=== PATIENT | male | born 1975 | race Caucasian/White ===

== ENCOUNTER → 2016-06-02 | Outpatient (REF) | payer OTHER ==
[2016-06-02 12:07] LABS: ALT/SGPT 54 U/L (12-78); ANION GAP 8 MEQ/L (8-16); BLOOD UREA NITROGEN 22 MG/DL (7-18); CALCIUM LEVEL 9.7 MG/DL (8.5-10.1); CARBON DIOXIDE LEVEL 26 MEQ/L (21-32); CHLORIDE LEVEL 101 MEQ/L (98-107); CHOLESTEROL LEVEL 220 MG/DL (<200); CREATININE FOR GFR 1.05 MG/DL (0.70-1.30); GLOMERULAR FILTRATION RATE > 60.0 (>60); GLUCOSE, FASTING 101 MG/DL (70-105); POTASSIUM SERUM 4.8 MEQ/L (3.5-5.1); SODIUM LEVEL 135 MEQ/L (136-145); TRIGLYCERIDES LEVEL 151 MG/DL (<150)
== END ==
LOC: M SFHCCLAY 08:28
PROVIDERS: ATTEND Family Medicine
DX: Z12.5 Encounter for screening for malignant neoplasm of prostate (principal); I10 Essential (primary) hypertension

== ENCOUNTER 2016-08-18 21:44 | Observation (INO) | payer OTHER ==
[~2016-08-18] VITALS: Ht 188 cm; Wt 157.6 kg
[2016-08-18] MEDS ORDERED: LISI10TA2 PO (21:57)
[2016-08-18] MEDS ORDERED: IBUP-1114 PO (21:57)
[2016-08-18] MEDS ORDERED: MULT1TAB10 PO (21:57)
[2016-08-18] MEDS ORDERED: diltiaZEM **CD** 180 MG CAP PO ONE (22:15)
[2016-08-18 22:25] LABS: BASO % 0.5 % (0.0-1.0); EOS # 0.3 K/mm3 (0.0-0.50); EOS % 3.1 % (0.0-3.0); LARGE UNSTAINED CELL # 0.1 K/mm3 (0.0-0.4); LARGE UNSTAINED CELL % 1.3 % (0.0-4.0); LYMPH # 1.7 K/mm3 (1.5-4.5); LYMPH % 18.5 % (24.0-44.0); MEAN CORPUSCULAR HEMOGLOBIN 28.1 pg (27.0-33.0); MEAN CORPUSCULAR HGB CONC 33.8 g/dl (32.0-36.5); MONO # 0.4 K/mm3 (0.0-0.8); NEUTROPHILS # 6.3 K/mm3 (1.8-7.7); NEUTROPHILS % 72.6 % (36.0-66.0); PLATELET COUNT, AUTOMATED 253 k/mm3 (150-450); RED CELL DISTRIBUTION WIDTH 12.8 % (11.5-14.5); WHITE BLOOD COUNT 8.6 K/mm3 (4.0-10.0)
[2016-08-18] MEDS ORDERED: APIXABAN 5 MG TAB (ELIQUIS) PO ONE (22:30)
[2016-08-18 22:45] LABS: ANION GAP 11 MEQ/L (8-16); BLOOD UREA NITROGEN 18 MG/DL (7-18); CALCIUM LEVEL 8.8 MG/DL (8.5-10.1); CARBON DIOXIDE LEVEL 23 MEQ/L (21-32); CHLORIDE LEVEL 105 MEQ/L (98-107); CREATININE FOR GFR 0.96 MG/DL (0.70-1.30); GLOMERULAR FILTRATION RATE > 60.0 (>60); GLUCOSE, FASTING 132 MG/DL (70-105); POTASSIUM SERUM 3.4 MEQ/L (3.5-5.1); SODIUM LEVEL 139 MEQ/L (136-145); T UPTAKE 44 % (33-40); THYROXINE (T4) 4.9 UG/DL (4.5-12.0)
[2016-08-18 22:59] VITALS: BP 82/61
[2016-08-18] MEDS ORDERED: NS 1,000 ML IV ONE (23:30)
[2016-08-19] MEDS ORDERED: DIGOXIN INJ 0.5 MG/2 ML AMP (J1160) IV STA (01:05)
[2016-08-19] MEDS ORDERED: POTASSIUM CHLORIDE 10 MEQ SR TABLET PO ONE ×3 (03:45→16:15)
[2016-08-19 04:00] VITALS: BP 118/71
[2016-08-19] MEDS ORDERED: LISI20TA PO (04:01)
[2016-08-19] MEDS ORDERED: VITMTA PO (04:01)
[2016-08-19] MEDS ORDERED: IBUPOTC PO (04:01)
[2016-08-19] MEDS ORDERED: VITA10006 PO (04:02)
[2016-08-19 08:00] VITALS: BP 112/60
[2016-08-19] MEDS ORDERED: DIGOXIN 0.25 MG TAB PO SCH (09:00)
[2016-08-19] MEDS ORDERED: ENOXAPARIN 40 MG/0.4 ML SYRINGE (J1650) SC SCH (09:00)
--- NOTE | 2016-08-19 11:20 | ECGEPIP ---
Stationary ECG Study [facility] - ED Test Date: 2016-08-18 Pat Name: SLOAN DE PAZ Department: Room: [place] [address] Gender: M Road [employer]: bettina : 1975 Requested By: SHAQUILLE CARDOZA Order Number: [id number] Reading MD: Maciej Reyes Measurements Intervals [place] Rate: 136 P: MS: 0 QRS: 13 QRSD: 95 T: 34 QT: 297 QTc: 447 Interpretive Statements ATRIAL FIBRILLATION WITH RAPID VENTRICULAR RESPONSE NONSPECIFIC ST & T-WAVE ABNORMALITY NO PRIORS Electronically Signed On 08-19-2016 11:20:28 EDT by Maciej Reyes
[2016-08-19 12:00] VITALS: BP 93/60
[2016-08-19] MEDS ORDERED: ISOVUE-370 76% 100ML VIAL (Q9967) As Ordered ONE (12:36)
[2016-08-19] MEDS ORDERED: KCL 20MEQ in NS 1000ML 1,000 ML IV SCH (13:00)
--- NOTE | 2016-08-19 13:05 | IPN ---
DATE: 08/19/2016 Robin is seen in the emergency room (ER). He has been in an interim bed, admitted with atrial fibrillation with rapid ventricular response. This patient was seen without benefit of the history and physical, which is not available at the time of his evaluation. Early afternoon, on 08/19/2016, the patient tells me he had sudden onset of chest pain and shortness of breath at rest. It was on the left side of his chest. It did not radiate. Associated with palpitations. He has no past history of current arrhythmia, deep venous thrombosis (DVT), pulmonary embolism, or coronary artery disease. He does have hypertensive heart disease. He has a body type consistent with sleep apnea and does have occasional snoring but there is no witnessed apnea nor any excessive somnolence. PHYSICAL EXAMINATION: 93/60, pulse of 88, ranges from 100-120 during the observation. Respiratory rate 18. 93% oxygen saturation. 97.6 degrees. General appearance: He is alert, conversant, in no distress. HEENT: Unremarkable. Thyroid not palpable. Lungs: Decreased breath sounds but clear. Heart: Regular rate and rhythm. No murmur. Rate of 100-120. Abdomen: Soft, obese, nontender. No masses. Extremities: No clubbing, cyanosis, or edema. Normal strength in the upper arms and legs. No palpable venous cords or swollen calves. LABORATORIES: No labs done since yesterday. Potassium 3.4. IMPRESSION: Atrial fibrillation with rapid ventricular response. Etiology is unknown. There is no history and physical currently available. I looked at the EKG. It did show a atrial fibrillation. I looked at telemetry strips. They do show atrial fibrillation. Per nursing staff, received diltiazem last evening, an oral dose followed by an intravenous (IV) bolus and became hypotensive with systolic pressures down to the 80s. Currently it looks as though he has received 0.5 mg of Lanoxin IV and then an oral dose. He also looks to have received a single dose of Eliquis by mouth, but now has Lovenox ordered. The patient has not had a chest x-ray nor baseline coagulation studies done on admission. I discussed this with the nursing staff, ordered a stat chest x-ray and a stat PT/PTT off the blood collected upon admission (he has received Eliquis and Lovenox. We will be checking coagulations now would be less usual. I think we need to rule out pulmonary embolism. A stat CT angiogram has been ordered. I am hydrating him with IV fluid. He is hypotensive, probably residual blood pressure effect from the lisinopril/hydrochlorothiazide he takes at home coupled with the high dose diltiazem he received last evening. We will give him some saline. Echocardiogram is pending. He had a thyroid-stimulating hormone (TSH) in the rest of the studies done on thyroid profile, which are outdated and not beneficial. I have ordered a free T4, which is pending. Consultation will be placed with Dr. Adams. The case has been discussed. He will see the patient in consultation. I met with the patient and his and answered questions as best as I can at this time.
[2016-08-19 13:27] LABS: INR 1.04
[2016-08-19 14:00] VITALS: BP 131/65
[2016-08-19] MEDS ORDERED: FLECAINIDE 100 MG TABLET PO ONE (14:00)
[2016-08-19 15:45] VITALS: BP 117/66
--- NOTE | 2016-08-19 16:04 | REP ---
CHEST PA AND LATERAL: 08/19/2016. Clinical history: Atrial fibrillation. No prior studies. Findings of the lung thayer are well inflated. There is no pleural effusion, lateral pleural thickening, infiltrate, atelectasis or mass. Heart, mediastinal, hilar contours are normal. There is no gross cardiomegaly, vascular redistribution or pulmonary edema. No specific chamber enlargement. The aorta is normal for age. Airway is intact. The mediastinal or hilar mass. Lungs show no acute compression deformity or focal lesion. No free air. Impression: 1. No acute cardiopulmonary change. Signed by Gaurav Nunn MD 08/19/2016 08:21 P
--- NOTE | 2016-08-19 16:15 | REP ---
CT ANGIOGRAM OF THE CHEST: 08/19/2016. Clinical history: Dyspnea, chest pain. Technique. The patient received a bolus of 75 ml as Isovue 370 and scanning through the chest with coronal and sagittal thick slab MIP reformatting. The patient has a chest x-ray this same date. Findings: The lung thayer show some minor dependent atelectatic changes posteriorly without definite infiltrate, effusion or mass. No pulmonary nodule. See no pleural effusion, pleural thickening, calcified pleural plaque or pleural-based masses. No pneumothorax and mediastinum. The heart is not enlarged and no pericardial thickening or effusion. The aorta is without aneurysm or dissection. The main, right and left pulmonary arteries and the mediastinum are without a filling defect. There are no pathologic sized mediastinal or hilar nodes in the soft tissue windows of the chest. Tracheal airway intact. No supraclavicular mass or adenopathy. No hilar adenopathy. Within the lung thayer, the lobar, segmental and visible subsegmental arteries are without definite filling defect or vessel cutoff. No pathologic axillary or supraclavicular adenopathy. The bone windows show the sternum, manubrium, medial clavicles, humeral heads, glenohumeral joints, scapulae, ribs and the thoracic spine without compression fracture. There are marginal osteophytes throughout the upper to lower thoracic region without compression deformity of destructive lesion. In the upper abdomen that portion of liver and spleen included were without focal lesion. Gallbladder shows no calcified stone and the majority of its included volume. A tiny amount of it not included. Most of the pancreas is seen and what was visible was normal. No adrenal nodule or mass. The aorta is without aneurysm or dissection in its proximal course in the abdomen. Loops of small bowel colon included were unremarkable. Impression: 1. Some dependent atelectatic changes are noted. No definite infiltrate, effusion, nodule or mass. No pneumothorax. 2. No gross cardiomegaly. 3. I see no mediastinal or hilar adenopathy, aortic aneurysm, axillary or supraclavicular mass. 4. No CT evidence of pulmonary thromboembolism. Signed by Gaurav Nunn MD 08/19/2016 08:23 P
[2016-08-19] MEDS ORDERED: LR 1,000 ML IV SCH (16:45)
--- NOTE | 2016-08-19 16:47 | HPE ---
DATE OF ADMISSION: 08/18/2016 PRIMARY CARE PROVIDER: Dr. Jorge L Lr CHIEF COMPLAINT: Racing of the heart that started around 9:00 p.m. yesterday associated with shortness of breath. PAST MEDICAL HISTORY: 1. Hypertension. 2. Obesity. HISTORY OF PRESENT ILLNESS: This is a 41-year-old male who was in his usual state of health when he suddenly developed racing of the heart at around 9:00 p.m. yesterday. Along with that, he felt some shortness of breath and he did not feel his usual self. He did not have any chest pain, did not have any diaphoresis, did not have any lightheadedness or dizziness, so he came to the emergency room to be evaluated. In the emergency department (ED), the patient was found to have atrial fibrillation with rapid ventricular response (RVR) with a rate of around 140-150. The patient was given diltiazem IV a total of 35 mg as well as diltiazem 360 mg CD by mouth. After about three hours, still the patient's pulse rate was around 120-130, so the patient was given 0.5 mg IV of digoxin. With that, his pulse rate did go down to around between 100-110. However, the patient now become hypotensive as a result of his diltiazem dosage, so the patient was admitted to the hospital for observation. The patient was also given one dose of Eliquis in the emergency room. PAST SURGICAL HISTORY: None. HOME MEDICATIONS: - lisinopril/hydrochlorothiazide 20/12.5 one tablet by mouth daily - ibuprofen 400 mg by mouth every six hours as needed for pain - vitamin C 1000 mg by mouth daily - multivitamins one tablet by mouth daily ALLERGIES: No known drug allergies. SOCIAL HISTORY: The patient does not smoke. He is a social drinker, drinks on Fridays and Saturdays about 4-5 drinks. FAMILY HISTORY: Not significant. REVIEW OF SYSTEMS: All 10-point review of systems are negative except those mentioned in the history of present illness (HPI). PHYSICAL EXAMINATION: VITAL SIGNS: Temperature 97.1, pulse 87, respiratory rate 18, blood pressure 118/71, pulse oximetry 96% on room air. GENERAL: Patient is awake, alert, and oriented times three, laying down in bed, in no acute distress. HEENT: Normocephalic, atraumatic. Moist mucous membranes. Anicteric eyes. CHEST: Clear to auscultation. CARDIOVASCULAR: S1, S2, regular. No rub, murmur, or gallop. ABDOMEN: Obese, soft, nontender. Bowel sounds present. EXTREMITIES: No edema. LABORATORY DATA: WBC 8.6, hemoglobin 14.5, platelets 253. Sodium 139, potassium 3.4, chloride 105, bicarbonate 23, BUN 18, creatinine 0.9, glucose 132, calcium 8.8, cardiac enzymes are negative, TSH 2.55. ASSESSMENT AND PLAN: The patient is a 41-year-old male admitted for atrial fibrillation with rapid ventricular response (RVR), who became hypotensive after diltiazem. PLAN: 1. For atrial fibrillation with rapid ventricular response (RVR), we will continue the patient on digoxin. We will consider changing lisinopril to diltiazem which would cover both for blood pressure as well as rate control for atrial fibrillation. We will get an echocardiogram. The patient's CHADS vascular score is only 1, so he does not need fci anticoagulation. If echocardiogram does show congestive heart failure then the score will increase to 2 and then we can consider fci anticoagulation. 2. Hypertension. At present, the patient is hypotensive because of loading dose of diltiazem. We will hold lisinopril and hydrochlorothiazide. Once blood pressure starts rising, we will consider starting the patient on diltiazem instead of lisinopril. 3. Deep vein thrombosis (DVT) prophylaxis has been ordered.
[2016-08-19] MEDS ORDERED: FLEC50TA PO (19:08)
[2016-08-19] MEDS ORDERED: XARE20TA PO (19:08)
[2016-08-19] MEDS ORDERED: CARV12.5 PO (19:08)
--- NOTE | 2016-08-19 21:33 | IPN ---
DATE: 08/19/2016 CARDIOLOGY PROGRESS NOTE SUBJECTIVE: At this point, 4-1/2 hours following his flecainide therapy has remained free of any further chest discomfort, shortness of breath, or palpitation. Has tolerated his flecainide 300 mg and potassium chloride replacement therapies without adverse effect. OBJECTIVE: Obese male, lying comfortably flat, entertaining a host of visitors in his room in progressive care unit (PCU). Heart rate 75 beats per minute (BPM) and regular, blood pressure 112/70 supine, unchanged upon sitting with legs dependent, respiratory rate 18 per minute, oxygen saturation 95% on room air. HAND ICER: This shows that he apparently converted to sinus mechanism at approximately 5:30 p.m. Has remained in a regular sinus mechanism with rare premature atrial contractions (PACs) . No ventricular arrhythmias. EKG: Followup tracing at this time shows sinus rhythm at 72 BPM with mild first-degree atrioventricular (AV) block following digoxin, diltiazem, and flecainide earlier today. Has a marginal interventricular conduction disturbance with normal corrected QT interval. Previously noted repolarization abnormalities have resolved. Has a very small Q-wave in aVF, unlikely to be due to myocardial infarction with normal inferior wall motion and wall thickening on his echocardiogram. IMPRESSION/PLAN: 1. Paroxysmal atrial fibrillation: Successfully converted to his sinus mechanism following flecainide therapy. At this point, I have discussed discharge home with Dr. Deluna. I have recommended he remain on oral anticoagulation, Xarelto 20 mg daily and low-dose flecainide 50 mg twice a day with carvedilol. I believe we will start was 6.25 mg twice a day, and I will be contacting him with results of home resting, sitting heart rates and blood pressures. Ultimately, he will undoubtedly require a higher dosage. We have requested that he perform only light activities today but likely could resume customary activity by tomorrow morning. His medications were to be started tomorrow morning. We have encouraged him to contact us promptly for any abnormal bleeding. He was also encouraged to avoid caffeinated beverages and minimize alcohol intake. 2. Chest pains/abnormal EKG: As mentioned, currently is free of any further chest discomfort, and EKG repolarization abnormalities have normalized with zoroastrianism of normal sinus rhythm. I plan to discuss further evaluation of his coronary prognosis as an outpatient in my office. 3. Hypertensive heart disease (benign without heart failure): Current blood pressure having received diltiazem earlier today was controlled. I am convinced carvedilol 6.25 mg or 12.5 mg twice a day will do as good a job at controlling his blood pressure will be more effective in preventing recurrent atrial tachyarrhythmia. As mentioned, I will be checking with him personally regarding resting heart rate and blood pressure measurements. I am convinced his serum potassium has normalized with our replacement therapy. He will no longer be using his lisinopril/hydrochlorothiazide at this time. 4. Obesity/body mass index (BMI) 44.6: I have emphasized the crucial importance of significant weight loss, either with dietary measures and exercise or perhaps bariatric intervention. He has a structural heart changes that will undoubtedly be associated with further cardiac rhythm problems and heart failure should he not accomplish this. Prescriptions for carvedilol, flecainide, and Xarelto were all called in to his pharmacy in [place]. My office will be contacting him tomorrow morning with a followup appointment with EKG in one week's time.
--- NOTE | 2016-08-19 21:47 | CR ---
DATE OF CONSULTATION: 08/19/2016 CARDIOLOGY CONSULTATION REFERRING PHYSICIAN: Dr. Deluna INDICATION: Chest pain, shortness of breath and new onset atrial fibrillation. 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 Has no previous history of cardiac problems. Yesterday evening at approximately 09:00 p.m. while watching television, he developed abrupt onset of retrosternal pressure, shortness of breath and heart racing. He finally informed his of his symptoms half an hour later and he was taken by ambulance. Upon his arrival at 09:44 p.m., his recorded pulse rate was 132 beats per minute, blood pressure 133/82, respiratory rate 20 per minute, oxygen saturation 96% on room air. His EKG showed atrial fibrillation with rapid ventricular response averaging 136 beats per minute (bpm). The patient was given intravenous (IV) diltiazem followed by oral diltiazem along with Eliquis by mouth. Because of suboptimal heart rate control, he was subsequently given digoxin. This morning, he was referred to my cardiology practice in light of sustained atrial fibrillation with intermittently rapid ventricular responses. Admission blood work showed normal hemoglobin and white blood cell count and platelet count. His PT/INR was normal. Chemistry showed slight hypokalemia of 3.4, but other electrolytes were normal. Random glucose was a little high at 132. Renal function was normal. CPK was normal with negative MB fraction/ Two sets of cardiac enzymes were negative. Ultra sensitive thyroid stimulating hormone (TSH) was normal at 2.6. Upon my arrival, his rhythm was still atrial fibrillation with a rate that varied between 90 and 110 beats per minute. At this point he was free of chest discomfort and shortness of breath that he had at the time of his admission. OTHER CARDIAC SYMPTOMS: For the past six months, he does admit to having had some short-lived random left precordial aching that would resolve within 30-60 seconds. Denied associated shortness of breath, diaphoresis or faintness. Believes he may have suffered between six and a dozen episodes, but claims the sensation did not vary with respiration or local pressure. Has a history of occasional nocturnal heartburn, using Tums, one or two weekly with relief. Despite a longstanding weight problem (weighed 200 pounds at age 17; maximum weight currently at 340 pounds; stable the past year). he claims not to have had a problem with shortness of breath until yesterday with his rapid rhythm. Has never been a smoker. He claims to sleep well, but his says he does occasionally snore, but she has never observed apneic spells and he has only occasional daytime sleepiness. Has a chronic dry cough attributed to his antihypertensive therapy, lisinopril. No history of hemoptysis or pneumonia. Unaware of prior history of rheumatic fever or heart murmur. Treated hypertension for the past several years with home readings. He reports 120-130 over 80-85. Unaware of cardiomegaly. No prior chest x-ray. Has never had an awareness of his heart action as he had yesterday evening or today. No previously documented rhythm disturbance. Avoids caffeinated beverages. May drink alcohol once a week, perhaps 6 or more bottles of beer at a sitting. Last alcoholic beverage was 08/16/2016. No known history of thyroid dysfunction and denies use of iusj-nnu-qcchusy medications such as decongestants, energizers, or dietary aids. No family history of premature sudden cardiac or rhythm disturbances. No history of congenital deafness. Denies any problems with dizziness, fall or loss of consciousness. Denies lateralizing neurological deficits, flank pain, hematuria or blue toe syndrome. No history of claudication, varicose veins or phlebitis and is unaware of any ankle swelling. CORONARY RISK FACTORS: Male gender. Obesity. Hypertension. History of borderline diabetes mellitus and borderline hypercholesterolemia. No family history of premature coronary heart disease. OTHER PAST MEDICAL HISTORY: 1. Obesity. 2. Hypertension, as mentioned. No prior hospitalizations. REVIEW OF SYSTEMS: We have infrequent band-like headache. No visual disturbance or hearing problems. Heartburn, as mentioned above, but denies dysphagia, other abdominal pain. Has had a problem with intermittent constipation and scant lola red blood on toilet paper, suspected to be due to anal fissure. Is trying to coordinate colonoscopy with Dr. Andrew. Has been using Colace with good effect. Nocturia once or twice nightly is chronic. No dysuria or hematuria. No known kidney problems. All other systems review is negative. MEDICATIONS: At home his medications include: - lisinopril/hydrochlorothiazide 20/12.5 mg one tablet daily - multivitamin one tablet daily - ascorbic acid 1 gram by mouth daily - ibuprofen 200 mg tablets two tablets every 4 hours as needed for headache or pain. ALLERGIES: None known. PHYSICAL EXAMINATION: CONSTITUTIONAL: Somewhat withdrawn/depressed. Morbidly obese male currently lying comfortably with the head of the bed elevated 30 degrees. VITAL SIGNS: Heart rate 90-110 per minute and irregular, blood pressure 126/75 supine, 116/68 sitting (both arms), respiratory rate 16 per minute with oxygen saturation 96% on room air. Afebrile. Weight 347 pounds, height 74 inches, body mass index (BMI) 44.6. Body surface area 2.94. EYES: Normal conjunctivae and lids. No pallor or icterus. No xanthelasma. ENT/MOUTH: Has his own teeth, normal oral moisture. No central cyanosis. NECK: Trachea midline. Thyroid did not appear to be enlarged. Neck veins were at the level of the sternal angle. RESPIRATORY: Increased anteroposterior chest diameter with fairly normal chest expansion. Good air entry over both lung thayer with no current abnormal pulmonary adventitious sounds. CARDIOVASCULAR: Apical impulse not palpable. Heart sounds were somewhat distant and variable. No audible gallop or murmur, possibly accentuated pulmonary closure at the right base. Normal carotid upstrokes with variable volume related to his arrhythmia. No audible bruits. Upper extremity and pedal pulses were symmetrical and normal. His abdominal aorta was not palpable. No abdominal bruits. His femoral pulses were also difficult to palpate because of his obesity. No varicose veins or dependent edema. EXTREMITIES: No clubbing, peripheral cyanosis or splinter hemorrhages. GASTROINTESTINAL (GI): Obese abdomen. It was soft and nontender with lower abdominal pannus. Unable to detect hepatosplenomegaly. Normal bowel sounds. Rectal examination was not indicated. MUSCULOSKELETAL: No obvious joint deformities. Normal appearing muscular strength and tone. Normal spine curvature. Gait was not assessed at this time. NEUROLOGICAL/PSYCHOLOGICAL: As mentioned, appears somewhat depressed with this circumstance, but bright, alert and oriented and gave a lucid history. Eye, facial, and extremity movements were symmetrical and normal. No abnormal movements. INVESTIGATIONS: PA left lateral chest x-ray taken this afternoon was reviewed independently and shows a normal appearing heart size with CT ratio measuring 16.3: 39. Normal-appearing greater vessels and pulmonary vasculature. No infiltrate or pleural effusion. Slight degenerative change of his mid thoracic spine on the lateral projection. EKGs: Tracing 08/18/2016 at 09:53 p.m. showed underlying atrial fibrillation with rapid ventricular sponsor averaging 136 beats per minute. Normal axis and QRS configuration. However, 0.5 to1 mm flat to downsloping ST depression in leads 1, aVL and V6 with his arrhythmia. Chest CT angiography was performed in light of his obesity, shortness of breath and chest discomfort. This again showed normal appearing thoracic aorta. Pulmonary trunk appeared to be mildly dilated at 3.5 cm. Left atrial size was at least mildly enlarged. Left ventricle appeared to be normal in size at 4.8 cm. Right ventricle and right atrium both appear to be slightly increased in size. Inferior vena cava measured 1.4 cm which is mildly increased. There was no coronary artery calcification or pericardial effusion. Pulmonary vasculature appeared to be normal without pulmonary embolism. Lung thayer were clear with no pleural effusion. Kidney sizes appear to be normal. Echocardiogram performed earlier this afternoon was reported separately. Also shows borderline concentric left ventricle hypertrophy with normal to slightly depressed wall motion, related to his atrial fibrillation and irregular ventricular response. Left atrium was mildly enlarged with estimated mean left atrial pressure at this time within normal limits. Right heart chambers were at least mildly enlarged with a moderate degree of pulmonary hypertension. Slightly dilated inferior vena cava (IVC) with reduced respiratory collapse suggesting a slightly elevated central venous pressure. Normal-appearing mitral and aortic valvular structures and function. Normal appearing tricuspid valve with mild insufficiency. No apparent intracardiac mass or pericardial effusion. BLOOD WORK: Admission hemoglobin was 14.5 with normal white blood cell count and platelet count. PT/INR 13.7/1.0, with PTT 53. Electrolytes on admission showed a potassium of 3.4, but otherwise electrolyte balance. BUN 18, creatinine 0.96, random glucose 132. Normal serum calcium. Thyroid stimulating hormone (TSH) of 2.6. Serial Troponin-I levels were negative. IMPRESSION/PLAN: 1. New onset atrial fibrillation: Likely, on the basis of his obesity and hypertension, provoking left ventricle hypertrophy and a mildly dilated left atrium. No apparent triggering phenomenon last evening, but does have a history of intermittent alcohol excess. With his currently controlled ventricular response on combination of diltiazem and digoxin, we have elected to administer flecainide 300 mg by mouth for one dose and monitor him over the course of the next four hours. He will be kept nothing by mouth (n.p.o.) with a plan to proceed with direct current cardioversion should his flecainide be unsuccessful. 2. Chest pain/abnormal EKG: From his description, over the course of the past six months, this random short-lived sensation is not suggestive of angina, though I could not elicit any clear nonanginal features. He had chest pressure associated with his sustained rapid ventricular response for at least an hour and admission EKG did show lateral ST/T-wave abnormalities, but serial Troponin-I levels have been negative. I believe it would be prudent to consider further noninvasive cardiac testing, i.e. a treadmill versus pharmacological stress heart scan to further define his obviously dietary measures, regular low-level aerobic exercise, and control of his ventricular response would be considered mason measures to protect his heart from ischemia. 3. Hypertensive heart disease (benign without heart failure): Interestingly, despite his echocardiographic findings and presentation with shortness of breath , his lung thayer are clear, clinically and radiographically. His estimated mean left atrial pressure with his echocardiogram/Doppler study was within normal limits as well at this time. Present blood pressure would be considered well-controlled on his lisinopril/hydrochlorothiazide. We have treated his mild hypokalemia with KCl 40 mEq by mouth for two doses. Renal function is normal. Long-term, I believe his blood pressure will likely be adequately managed with carvedilol used to treat his atrial fibrillation as well as blood pressure. 4. Obesity/BMI 44.6: I am convinced this has contributed to his left ventricular diastolic dysfunction and left atrial enlargement, as well as risk of arrhythmia. This is, of course, is contributing to his hypertension, glucose intolerance and borderline hyperlipidemia. He also describes an element of sleep disorder, but no obvious signs of obstructive sleep apnea. With his echocardiographic/Doppler findings of at least moderate pulmonary hypertension, it would still be prudent to consider at least a screening of nocturnal oximetry. We have emphasized the crucial importance of significant weight reduction in order to hopefully reverse the observed structural cardiac abnormalities and reduce his risk of further rhythm problems. I have discussed the above opinions with the patient and his in detail who appear to a stand and agree. I will be checking back with him 4-5 hours following his flecainide dosage. Fabian Adams MD, FACC MTDD
--- NOTE | 2016-08-25 08:50 | ECHO ---
DATE OF PROCEDURE: 08/19/2016 AGE: 41. GENDER: Male. HEIGHT: 74 inches. WEIGHT: 347 pounds. BODY SURFACE AREA: 2.72 meters squared. INPATIENT AT THE TIME: PCU room 3212. REFERRING PHYSICIAN: Dr. Hilda Bucio INDICATION: Chest pain/abnormal EKG/atrial fibrillation. MEASUREMENTS: 2-D measurements: RV - 4.3 cm LV - 5.0 cm Septum 1.2 cm Posterior wall 1.2 cm Aortic root 3.7 cm LA - 4.2 cm LVEF 50 - 55% Doppler measurements: AV - 0.9 meters per second LVOT - 0.6 meters per second LVOT diameter 2.5 cm MV - E 67 Early mitral deceleration time 134 milliseconds E/E prime ratio 5.4 PV - 0.6 meters per second Pulmonary artery acceleration time 120 milliseconds RVSP 31 mmHg IVC - 2.2 cm COMMENTS: Underlying atrial fibrillation with controlled ventricular response. Technically difficult study in light of the patient's body habitus but diagnostically useful information was still obtained. Mildly dilated left atrium with current estimated mean left atrial pressure within normal limits. Borderline concentric left ventricle hypertrophy with normal to slightly depressed wall motion related to his atrial fibrillation and irregular ventricular response. The right heart chambers were at least mildly enlarged with least mild to moderate degree of pulmonary hypertension. Slightly dilated inferior vena cava with reduced respiratory collapse suggesting a slightly elevated central venous pressure. Normal-appearing mitral and aortic valvular structures and function. Normal tricuspid valve with mild insufficiency. No apparent intracardiac mass or pericardial effusion. CONCLUSIONS: Redictation of the echocardiogram that was initially dictated August 19, 2016. Technically difficult study in light of the patient's body habitus. Borderline left ventricle hypertrophy with slightly reduced global left ventricular systolic function because of his arrhythmia. Mildly dilated left atrium with current estimated mean left atrial pressure within normal limits. Mildly dilated right heart chambers with mild to moderate pulmonary hypertension. IVC was mildly dilated suggesting slightly elevated central venous pressure. As mentioned, this had been previously dictated and the referring physician aware of the results, these were also dictated on my consultation that was dictated on the same day. cc: MD Fabian Wall MD [facility]
--- NOTE | 2016-08-25 11:50 | ECHO ---
DATE OF PROCEDURE: 08/19/2016 AGE: 41 GENDER: Male HEIGHT: 74 inches. WEIGHT: 339 pounds. BODY SURFACE AREA: 2.72 meters squared. INPATIENT: PCU, room 3212. REFERRING PHYSICIAN: Dr. Hilda Bucio. INDICATION: Chest pain. Abnormal EKG. Atrial fibrillation. MEASUREMENTS: 2D Measurements: RV - 4.3 cm LV - 5.0 cm Septum - 1.2 cm Posterior wall - 1.2 cm Aortic root - 3.7 cm LA - 4.2 cm LVEF 55-65% (difficult with his atrial fibrillation). Doppler Measurements: AV - 0.9 m/s LVOT - 0.6 m/s LVOT diameter 2.5 cm MV-E 67 Early mitral deceleration time - 134 ms E prime 12.4, E/E ratio 5.4 PV - 0.6 m/s Pulmonary artery acceleration time - 120 ms RVSP - 41 mmHg IVC - 2.4 cm COMMENTS: Underlying atrial fibrillation with currently controlled ventricular response. No interventricular conduction disturbance. Technically difficult study in light of the patient's body habitus but diagnostically useful information was still obtained. Mildly dilated left atrium but normal left ventricular size. Right heart chamber sizes were at least mildly dilated. Left ventricle (LV) wall thickness was upper limits of normal to slightly hypertrophied. On real-time imaging from the parasternal and apical projections, wall motion appeared to be perhaps marginally hypokinetic to normal kinetic (challenging with his atrial fibrillation). Normal appearing mitral valvular apparatus and leaflet excursion with no posterior systolic buckling. Three equal sized aortic cups of normal thickness and cusp separation. Aortic root size upper limits of normal. There is no apparent intracardiac mass or pericardial effusion. Color flow Doppler study taken from the parasternal and apical projection failed to demonstrate any mitral or aortic insufficiency. There was mild tricuspid insufficiency. Guided continuous wave Doppler of his aortic valve show a normal peak systolic velocity against LV outflow obstruction. Pulsed and continuous wave Doppler of his LV inflow tract taken from the apical four chamber projection showed normal diastolic filling velocities against mitral stenosis. There was only early diastolic/passive filling as we would expect with atrial fibrillation. His early mitral deceleration time was slightly abbreviated suggesting a degree of LV diastolic dysfunction but using tissue Doppler of his mitral annulus, his current estimated mean left atrial pressure was within normal limits. Pulsed and continuous wave Doppler of his pulmonary trunk showed a normal peak systolic velocity against right ventricle (RV) outflow tract obstruction. His pulmonary artery acceleration time was lower limits of normal against significantly elevated pulmonary vascular resistance. Guided continuous wave Doppler of his tricuspid valve allowed our estimation of right ventricular systolic pressure (moderately increased). His inferior vena cava was slightly dilated with a degree of reduced respiratory collapse suggestive of a slightly elevated central elevated central venous pressure. CONCLUSIONS: Technically difficult study. Borderline concentric left ventricular hypertrophy with normal to slightly impaired global resting left ventricular systolic function with his atrial fibrillation. Mild dilated left atrium with Doppler features suggesting a degree of LV diastolic dysfunction but currently normal estimated mean left atrial pressure. Mildly dilated right heart chambers with Doppler evidence of moderate pulmonary hypertension. Mildly dilated IVC with slightly reduced respiratory collapse suggestive of a degree of slightly elevated central venous pressure. Left atrial size would not be against a sustained sinus mechanism if cardioversion was attempted. MTDD
--- NOTE | 2016-09-02 11:56 | ECGEPIP ---
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
== END 2016-08-19 20:06 | disposition home or self-care (01) ==
LOC: M ED 22:29 → M ED INP 22:30 → M PCU 08-19 14:00
PROVIDERS: ADMIT Internal Medicine Nephrology; ATTEND Family Medicine
DX: I48.91 Unspecified atrial fibrillation (principal); I11.9 Hypertensive heart disease without heart failure; E66.9 Obesity, unspecified; Z79.899 Other long term (current) drug therapy
CPT/HCPCS: 36415; 71020; 71275; 80048; 82550; 82553; 84436; 84439; 84443; 84479; 85025; 85610; 85730; 93005; 96372; 96374; 96375; 99285; J1160; J1650; Q9967

== ENCOUNTER → 2016-09-08 | Outpatient (REF) | payer OTHER ==
[~2016-09-08] MED LIST: CARV12.5 PO; FLEC50TA PO; IBUP-1114 PO; IBUPOTC PO; LISI10TA2 PO; LISI20TA PO; MULT1TAB10 PO; VITA10006 PO; VITMTA PO; XARE20TA PO
[2016-09-08 12:44] LABS: MEAN CORPUSCULAR HEMOGLOBIN 28.1 pg (27.0-33.0); MEAN CORPUSCULAR HGB CONC 33.2 g/dl (32.0-36.5); MEAN CORPUSCULAR VOLUME 84.7 fl (80.0-96.0); RED CELL DISTRIBUTION WIDTH 12.9 % (11.5-14.5); WHITE BLOOD COUNT 5.7 K/mm3 (4.0-10.0)
[2016-09-08 13:13] LABS: ALBUMIN 3.9 GM/DL (3.2-5.2); ALBUMIN/GLOBULIN RATIO 1.18 (1.00-1.93); ALKALINE PHOSPHATASE 38 U/L (45-117); ALT/SGPT 35 U/L (12-78); ANION GAP 6 MEQ/L (8-16); AST/SGOT 16 U/L (15-37); BILIRUBIN,DIRECT 0.1 MG/DL (0.0-0.2); BILIRUBIN,TOTAL 0.5 MG/DL (0.2-1.0); BLOOD UREA NITROGEN 15 MG/DL (7-18); CALCIUM LEVEL 8.8 MG/DL (8.5-10.1); CARBON DIOXIDE LEVEL 26 MEQ/L (21-32); CHLORIDE LEVEL 108 MEQ/L (98-107); CHOLESTEROL LEVEL 173 MG/DL (<200); CREATININE FOR GFR 1.06 MG/DL (0.70-1.30); GLOMERULAR FILTRATION RATE > 60.0 (>60); GLUCOSE, FASTING 102 MG/DL (70-105); MAGNESIUM LEVEL 2.4 MG/DL (1.8-2.4); PHOSPHORUS LEVEL 3.9 MG/DL (2.5-4.9); POTASSIUM SERUM 4.4 MEQ/L (3.5-5.1); SODIUM LEVEL 140 MEQ/L (136-145); TOTAL PROTEIN 7.2 GM/DL (6.4-8.2); TRIGLYCERIDES LEVEL 99 MG/DL (<150)
== END ==
LOC: M LABDRAWC 11:43
PROVIDERS: ATTEND Nurse Practitioner Family
DX: E87.6 Hypokalemia (principal); Z13.220 Encounter for screening for lipoid disorders; I48.0 Paroxysmal atrial fibrillation

== ENCOUNTER → 2016-12-01 | Outpatient (REF) | payer OTHER ==
[2016-12-01 13:10] LABS: ALBUMIN 3.8 GM/DL (3.2-5.2); ALKALINE PHOSPHATASE 49 U/L (45-117); ALT/SGPT 31 U/L (12-78); ANION GAP 9 MEQ/L (8-16); AST/SGOT 14 U/L (15-37); BILIRUBIN,TOTAL 0.5 MG/DL (0.2-1.0); BLOOD UREA NITROGEN 15 MG/DL (7-18); CALCIUM LEVEL 8.9 MG/DL (8.5-10.1); CARBON DIOXIDE LEVEL 24 MEQ/L (21-32); CHLORIDE LEVEL 107 MEQ/L (98-107); CHOLESTEROL LEVEL 167 MG/DL (<200); CREATININE FOR GFR 0.88 MG/DL (0.70-1.30); FREE T4 0.89 NG/DL (0.76-1.46); GLOMERULAR FILTRATION RATE > 60.0 (>60); GLUCOSE, FASTING 95 MG/DL (70-105); POTASSIUM SERUM 4.3 MEQ/L (3.5-5.1); SODIUM LEVEL 140 MEQ/L (136-145); TOTAL PROTEIN 7.6 GM/DL (6.4-8.2); TRIGLYCERIDES LEVEL 116 MG/DL (<150)
== END ==
LOC: M SFHCCLAY 07:49
PROVIDERS: ATTEND Family Medicine
DX: I48.0 Paroxysmal atrial fibrillation (principal); I10 Essential (primary) hypertension

== ENCOUNTER → 2017-12-07 | Outpatient (REF) | payer BC ==
[2017-12-07 12:11] LABS: HEMATOCRIT 45.9 % (42.0-52.0); MEAN CORPUSCULAR HEMOGLOBIN 27.4 pg (27.0-33.0); MEAN CORPUSCULAR HGB CONC 32.7 g/dl (32.0-36.5); MEAN CORPUSCULAR VOLUME 83.8 fl (80.0-96.0); PLATELET COUNT, AUTOMATED 245 10^3/uL (150-450); RED BLOOD COUNT 5.48 10^6/uL (4.30-6.10); RED CELL DISTRIBUTION WIDTH 12.5 % (11.5-14.5); WHITE BLOOD COUNT 6.6 10^3/uL (4.0-10.0)
[2017-12-07 12:37] LABS: ALBUMIN 3.6 GM/DL (3.2-5.2); ALBUMIN/GLOBULIN RATIO 1.03 (1.00-1.93); ALKALINE PHOSPHATASE 44 U/L (45-117); ALT/SGPT 36 U/L (12-78); ANION GAP 7 MEQ/L (8-16); AST/SGOT 14 U/L (7-37); BILIRUBIN,TOTAL 0.4 MG/DL (0.2-1.0); BLOOD UREA NITROGEN 14 MG/DL (7-18); CALCIUM LEVEL 8.4 MG/DL (8.5-10.1); CARBON DIOXIDE LEVEL 27 MEQ/L (21-32); CHLORIDE LEVEL 107 MEQ/L (98-107); CHOLESTEROL LEVEL 217 MG/DL (<200); CHOLESTEROL RISK RATIO 5.864 (<5); CREATININE FOR GFR 0.94 MG/DL (0.70-1.30); GLOMERULAR FILTRATION RATE > 60.0 (>60); GLUCOSE, FASTING 102 MG/DL (70-100); HDL CHOLESTEROL 37 MG/DL (>40); LDL CHOLESTEROL 151 MG/DL (<100); NON-HDL-C 180 MG/DL; POTASSIUM SERUM 4.6 MEQ/L (3.5-5.1); SODIUM LEVEL 141 MEQ/L (136-145); TOTAL PROTEIN 7.1 GM/DL (6.4-8.2); TRIGLYCERIDES LEVEL 146 MG/DL (<150)
== END ==
LOC: M SFHCCLAY 07:44
DX: I10 Essential (primary) hypertension (principal); I48.0 Paroxysmal atrial fibrillation
CPT/HCPCS: 84443

== ENCOUNTER → 2018-07-06 | Outpatient (REF) | payer BC ==
[~2018-07-06] MED LIST changes: +FLEC50HA PO; -FLEC50TA PO
[2018-07-06 12:07] LABS: HEMOGLOBIN A1c 5.7 %
[2018-07-06 12:48] LABS: ALT/SGPT 44 U/L (12-78); BLOOD UREA NITROGEN 15 MG/DL (7-18); CALCIUM LEVEL 8.9 MG/DL (8.5-10.1); CARBON DIOXIDE LEVEL 25 MEQ/L (21-32); CHLORIDE LEVEL 108 MEQ/L (98-107); CHOLESTEROL LEVEL 208 MG/DL (<200); CHOLESTEROL RISK RATIO 5.473 (<5); CREATININE FOR GFR 0.94 MG/DL (0.70-1.30); GLOMERULAR FILTRATION RATE > 60.0 (>60); GLUCOSE, FASTING 111 MG/DL (70-100); HDL CHOLESTEROL 38 MG/DL (>40); LDL CHOLESTEROL 133 MG/DL (<100); NON-HDL-C 170 MG/DL; POTASSIUM SERUM 4.2 MEQ/L (3.5-5.1); SODIUM LEVEL 139 MEQ/L (136-145); TRIGLYCERIDES LEVEL 183 MG/DL (<150)
== END ==
LOC: M SFHCCLAY 07:41
PROVIDERS: ATTEND Family Medicine
DX: I10 Essential (primary) hypertension (principal); R73.01 Impaired fasting glucose; E78.2 Mixed hyperlipidemia

== ENCOUNTER → 2018-12-07 | Outpatient (CLI) | payer BC ==
[~2018-12-07] MED LIST changes: +LISI10TA15 PO; -LISI10TA2 PO; -LISI20TA PO; +LISI20TA19 PO
--- NOTE | 2018-12-09 00:29 | SLEEPCENT ---
DATE OF PROCEDURE: 12/07/2018 ORDERED BY: ESTHELA Duncan Nocturnal polysomnography was performed for titration of pressure therapy in this patient with obstructive sleep apnea syndrome, respiratory event index 32.8. For testing a ResMed Quattro full face mask of medium size was used, 4 cm of water pressure were applied to the circuit and the lights were extinguished. 8 hours and 3 minutes of data were reviewed. There were 321 minutes of sleep identified. Sleep latency was prolonged at 97.5 minutes. Rapid eye movement (REM) latency was mildly prolonged at 150 minutes. Sleep architecture improved up with optimal pressure therapy. There were three REM cycles. Overall sleep efficiency 67.2%. The patient's electrocardiogram showed a sinus rhythm with an average heart rate of 65 beats per minute. EEG showed reasonably normal waveforms for awake and sleep. Respiratory events were fully palliated with continuous positive airway pressure (CPAP) at a pressure of +10 and limb activity noted early in the study improved when pressure was optimized as well. IMPRESSION: Obstructive sleep apnea syndrome (G47.33). RECOMMENDATIONS Nightly use of pressure therapy 10 cm of water.
== END ==
LOC: M SLEEP 19:35
PROVIDERS: ATTEND Nurse Practitioner Family
DX: G47.33 Obstructive sleep apnea (adult) (pediatric) (principal)

== ENCOUNTER → 2019-03-20 | Outpatient (REF) | payer BC ==
[2019-03-20 12:45] LABS: ALT/SGPT 43 U/L (12-78); BILIRUBIN,TOTAL 0.4 MG/DL (0.2-1.0); BLOOD UREA NITROGEN 17 MG/DL (7-18); CALCIUM LEVEL 8.8 MG/DL (8.5-10.1); CARBON DIOXIDE LEVEL 25 MEQ/L (21-32); CHLORIDE LEVEL 104 MEQ/L (98-107); CHOLESTEROL LEVEL 171 MG/DL (<200); CHOLESTEROL RISK RATIO 5.181 (<5); CREATININE FOR GFR 0.93 MG/DL (0.70-1.30); GLOMERULAR FILTRATION RATE > 60.0 (>60); GLUCOSE, FASTING 95 MG/DL (70-100); HDL CHOLESTEROL 33 MG/DL (>40); LDL CHOLESTEROL 115 MG/DL (<100); NON-HDL-C 138 MG/DL; POTASSIUM SERUM 4.5 MEQ/L (3.5-5.1); SODIUM LEVEL 138 MEQ/L (136-145); TOTAL PROTEIN 7.4 GM/DL (6.4-8.2); TRIGLYCERIDES LEVEL 115 MG/DL (<150)
[2019-03-20 13:25] LABS: HEMOGLOBIN A1c 5.6 %
== END ==
LOC: M SFHCCLAY 08:36
PROVIDERS: ATTEND Family Medicine
DX: I10 Essential (primary) hypertension (principal); R73.01 Impaired fasting glucose; E78.2 Mixed hyperlipidemia

== ENCOUNTER → 2020-03-20 | Outpatient (REF) | payer BC ==
[~2020-03-20] MED LIST changes: -LISI20TA19 PO; +LISI20TA35 PO
[2020-03-20 12:05] LABS: HEMOGLOBIN A1c 5.1 %
[2020-03-20 12:34] LABS: ALBUMIN 3.9 GM/DL (3.2-5.2); ALT/SGPT 42 U/L (12-78); BILIRUBIN,TOTAL 0.5 MG/DL (0.2-1.0); BLOOD UREA NITROGEN 18 MG/DL (7-18); CALCIUM LEVEL 9.4 MG/DL (8.5-10.1); CARBON DIOXIDE LEVEL 28 MEQ/L (21-32); CHLORIDE LEVEL 103 MEQ/L (98-107); CHOLESTEROL LEVEL 188 MG/DL (<200); CHOLESTEROL RISK RATIO 5.081 (<5); CREATININE FOR GFR 0.94 MG/DL (0.70-1.30); GLOMERULAR FILTRATION RATE > 60.0 (>60); GLUCOSE, FASTING 103 MG/DL (70-100); HDL CHOLESTEROL 37 MG/DL (>40); LDL CHOLESTEROL 122 MG/DL (<100); NON-HDL-C 151 MG/DL; POTASSIUM SERUM 4.4 MEQ/L (3.5-5.1); SODIUM LEVEL 137 MEQ/L (136-145); TOTAL PROTEIN 7.4 GM/DL (6.4-8.2); TRIGLYCERIDES LEVEL 147 MG/DL (<150)
== END ==
LOC: M SFHCCLAY 08:00
PROVIDERS: ATTEND Family Medicine
DX: I48.0 Paroxysmal atrial fibrillation (principal); E78.2 Mixed hyperlipidemia; R73.01 Impaired fasting glucose; Z12.5 Encounter for screening for malignant neoplasm of prostate; Z20.9 Contact with and (suspected) exposure to unspecified communicable disease

== ENCOUNTER → 2021-01-28 | Outpatient (REF) | payer BC ==
[~2021-01-28] MED LIST changes: -LISI10TA15 PO; +LISI10TA24 PO
[2021-01-28 11:42] LABS: HEMATOCRIT 45.6 % (42.0-52.0); HEMOGLOBIN 14.6 g/dl (13.5-17.5); MEAN CORPUSCULAR HEMOGLOBIN 27.2 pg (27.0-33.0); MEAN CORPUSCULAR VOLUME 84.9 fl (80.0-96.0); PLATELET COUNT, AUTOMATED 258 10^3/uL (150-450); RED BLOOD COUNT 5.37 10^6/uL (4.30-6.10); WHITE BLOOD COUNT 7.6 10^3/uL (4.0-10.0)
== END ==
LOC: M LABDRAWC 11:18
PROVIDERS: ATTEND Physician Assistant
DX: I48.0 Paroxysmal atrial fibrillation (principal)

== ENCOUNTER → 2021-03-25 | Outpatient (REF) | payer BC ==
[2021-03-25 11:46] LABS: HEMATOCRIT 46.7 % (42.0-52.0); HEMOGLOBIN 15.2 g/dl (13.5-17.5); MEAN CORPUSCULAR HEMOGLOBIN 27.3 pg (27.0-33.0); MEAN CORPUSCULAR HGB CONC 32.5 g/dl (32.0-36.5); PLATELET COUNT, AUTOMATED 282 10^3/uL (150-450); RED BLOOD COUNT 5.56 10^6/uL (4.30-6.10); WHITE BLOOD COUNT 7.4 10^3/uL (4.0-10.0)
[2021-03-25 12:23] LABS: GLUCOSE, FASTING 112 MG/DL (70-100)
[2021-03-25 12:24] LABS: ALBUMIN 4.1 GM/DL (3.2-5.2); ALT/SGPT 61 U/L (12-78); BILIRUBIN,TOTAL 0.4 MG/DL (0.2-1.0); BLOOD UREA NITROGEN 15 MG/DL (7-18); CALCIUM LEVEL 9.5 MG/DL (8.5-10.1); CARBON DIOXIDE LEVEL 26 MEQ/L (21-32); CHLORIDE LEVEL 102 MEQ/L (98-107); CHOLESTEROL LEVEL 189 MG/DL (<200); CREATININE FOR GFR 0.84 MG/DL (0.70-1.30); GLOMERULAR FILTRATION RATE > 60.0 (>60); HDL CHOLESTEROL 35 MG/DL (>40); LDL CHOLESTEROL 118 MG/DL (<100); NON-HDL-C 154 MG/DL; POTASSIUM SERUM 4.6 MEQ/L (3.5-5.1); SODIUM LEVEL 137 MEQ/L (136-145); TOTAL PROTEIN 7.8 GM/DL (6.4-8.2); TRIGLYCERIDES LEVEL 178 MG/DL (<150)
== END ==
LOC: M SFHCCLAY 09:06
PROVIDERS: ATTEND Family Medicine
DX: I10 Essential (primary) hypertension (principal); I48.0 Paroxysmal atrial fibrillation; E78.2 Mixed hyperlipidemia; Z12.5 Encounter for screening for malignant neoplasm of prostate; G47.33 Obstructive sleep apnea (adult) (pediatric)

== ENCOUNTER → 2021-04-30 | Outpatient (REF) | payer BC | LOC: M LAB REF 09:11 | PROVIDERS: ATTEND Surgery | DX: L72.11 Pilar cyst (principal) ==

== ENCOUNTER → 2022-03-24 | Outpatient (REF) | payer BC ==
[2022-03-25 12:14] LABS: ALKALINE PHOSPHATASE 44 U/L (46-116); ALT/SGPT 51 U/L (7.0-40); AST/SGOT 24 U/L (<34); BILIRUBIN,TOTAL 0.4 MG/DL (0.3-1.2); BLOOD UREA NITROGEN 16 MG/DL (9-23); CALCIUM LEVEL 9.2 MG/DL (8.5-10.1); CARBON DIOXIDE LEVEL 28 MMOL/L (20-31); CHLORIDE LEVEL 104 MMOL/L (98-107); CHOLESTEROL LEVEL 177 MG/DL (<200); CHOLESTEROL RISK RATIO 5.07 (<5); CREATININE FOR GFR 0.92 MG/DL (0.70-1.30); GLOMERULAR FILTRATION RATE > 60.0 (>60); GLUCOSE, FASTING 112 MG/DL (60-100); HDL CHOLESTEROL 34.9 MG/DL (>40); LDL CHOLESTEROL 120.1 MG/DL (<100); NON-HDL-C 142 MG/DL; POTASSIUM SERUM 5.9 MMOL/L (3.5-5.1); SODIUM LEVEL 136 MMOL/L (136-145); TOTAL PROTEIN 6.9 G/DL (5.7-8.2); TRIGLYCERIDES LEVEL 110 MG/DL (<150)
[2022-03-25 12:19] LABS: HEMOGLOBIN A1c 5.5 % (4.0-6.0)
== END ==
LOC: M SFHCCLAY 08:13
PROVIDERS: ATTEND Family Medicine
DX: I10 Essential (primary) hypertension (principal); E78.2 Mixed hyperlipidemia; I48.0 Paroxysmal atrial fibrillation; Z12.5 Encounter for screening for malignant neoplasm of prostate; R73.01 Impaired fasting glucose

== ENCOUNTER → 2022-03-27 | Outpatient (REF) | payer BC ==
[2022-03-27 17:32] LABS: POTASSIUM SERUM 4.3 MMOL/L (3.5-5.1)
== END ==
LOC: M SFHCCLAY 09:12
PROVIDERS: ATTEND Family Medicine
DX: Z00.00 Encounter for general adult medical examination without abnormal findings (principal); Z12.5 Encounter for screening for malignant neoplasm of prostate; E87.5 Hyperkalemia
CPT/HCPCS: 84132; G0103

== ENCOUNTER 2022-09-17 08:57 | Day surgery (SDC) | payer BC ==
[~2022-09-17] VITALS: Ht 188 cm; Wt 164.2 kg
[~2022-09-17 08:57] MED LIST changes: +NS 1,000 ML IV ONE
[2022-09-17] MEDS ORDERED: propofoL 500 MG/50 ML VIAL As Ordered ONE ×2 (09:44→10:35)
[2022-09-17] MEDS ORDERED: LIDOCAINE 2% 100MG/5ML SDV (FOR ANES.) As Ordered ONE (09:44)
[2022-09-17 09:59] VITALS: TEMP 97
[2022-09-17 10:11] VITALS: BP 128/63; O2SAT 97
== END 2022-09-17 10:19 | disposition home or self-care (01) ==
LOC: M OPP 08:57
PROVIDERS: ATTEND Surgery
DX: R93.3 Abnormal findings on diagnostic imaging of other parts of digestive tract (principal); K52.3 Indeterminate colitis

== ENCOUNTER → 2023-03-26 | Outpatient (REF) | payer BC ==
[~2023-03-26] MED LIST changes: -NS 1,000 ML IV ONE
[2023-03-26 11:36] LABS: HEMATOCRIT 41.5 % (42.0-52.0); HEMOGLOBIN 13.6 g/dl (13.5-17.5); MEAN CORPUSCULAR HEMOGLOBIN 27.3 pg (27.0-33.0); MEAN CORPUSCULAR HGB CONC 32.8 g/dl (32.0-36.5); MEAN CORPUSCULAR VOLUME 83.3 fl (80.0-96.0); PLATELET COUNT, AUTOMATED 232 10^3/uL (150-450); RED BLOOD COUNT 4.98 10^6/uL (4.30-6.10); WHITE BLOOD COUNT 5.9 10^3/uL (4.0-10.0)
[2023-03-26 11:42] LABS: PSA SCREENING 0.99 NG/ML (< 4.00)
[2023-03-26 11:45] LABS: ALBUMIN 3.8 G/DL (3.2-5.2); ALKALINE PHOSPHATASE 46 U/L (46-116); ALT/SGPT 40 U/L (7.0-40); AST/SGOT 20 U/L (<34); BILIRUBIN,TOTAL 0.5 MG/DL (0.3-1.2); BLOOD UREA NITROGEN 13 MG/DL (9-23); CALCIUM LEVEL 9.3 MG/DL (8.5-10.1); CARBON DIOXIDE LEVEL 28 MMOL/L (20-31); CHLORIDE LEVEL 105 MMOL/L (98-107); CHOLESTEROL LEVEL 191 MG/DL (<200); CHOLESTEROL RISK RATIO 5.65 (<5); CREATININE FOR GFR 0.85 MG/DL (0.70-1.30); GLOMERULAR FILTRATION RATE > 60.0 (>60); GLUCOSE, FASTING 109 MG/DL (60-100); HDL CHOLESTEROL 33.8 MG/DL (>40); LDL CHOLESTEROL 130.6 MG/DL (<100); NON-HDL-C 157.2 MG/DL; POTASSIUM SERUM 4.3 MMOL/L (3.5-5.1); SODIUM LEVEL 139 MMOL/L (136-145); TOTAL PROTEIN 6.9 G/DL (5.7-8.2); TRIGLYCERIDES LEVEL 133 MG/DL (<150)
[2023-03-26 11:54] LABS: HEMOGLOBIN A1c 5.4 % (4.0-6.0)
== END ==
LOC: M SFHCCLAY 08:33
PROVIDERS: ATTEND Family Medicine
DX: E78.2 Mixed hyperlipidemia (principal); I10 Essential (primary) hypertension; I48.0 Paroxysmal atrial fibrillation; G47.33 Obstructive sleep apnea (adult) (pediatric); R73.01 Impaired fasting glucose; Z12.5 Encounter for screening for malignant neoplasm of prostate
CPT/HCPCS: 80053; 80061; 83036; 85027; G0103

== ENCOUNTER → 2024-03-28 | Outpatient (REF) | payer BC ==
[2024-03-28 15:28] LABS: ALKALINE PHOSPHATASE 51 U/L (40-129); ALT/SGPT 58 U/L (7.0-40); AST/SGOT 23 U/L (<34); BILIRUBIN,TOTAL 0.8 MG/DL (0.3-1.2); BLOOD UREA NITROGEN 16 MG/DL (9-23); CALCIUM LEVEL 9.5 MG/DL (8.5-10.1); CARBON DIOXIDE LEVEL 26 MMOL/L (20-31); CHLORIDE LEVEL 102 MMOL/L (98-107); CHOLESTEROL LEVEL 199 MG/DL (<200); CHOLESTEROL RISK RATIO 5.63 (<5); GLOMERULAR FILTRATION RATE > 60.0 (>60); GLUCOSE, FASTING 89 MG/DL (60-100); HDL CHOLESTEROL 35.3 MG/DL (>40); LDL CHOLESTEROL 127.9 MG/DL (<100); NON-HDL-C 163.7 MG/DL; POTASSIUM SERUM 4.5 MMOL/L (3.5-5.1); PSA SCREENING 1.04 NG/ML (< 4.00); SODIUM LEVEL 139 MMOL/L (136-145); TOTAL PROTEIN 7.6 G/DL (5.7-8.2); TRIGLYCERIDES LEVEL 179 MG/DL (<150)
[2024-03-28 15:29] LABS: THYROID STIMULATING HORMONE 1.784 uIU/ML (0.55-4.78)
[2024-03-28 15:30] LABS: FREE T4 1.35 NG/DL (0.89-1.76)
[2024-03-28 15:57] LABS: HEMOGLOBIN A1c 5.6 % (4.0-6.0)
== END ==
LOC: M SFHCCLAY 10:47
PROVIDERS: ATTEND Physician Assistant
DX: I10 Essential (primary) hypertension (principal); I48.0 Paroxysmal atrial fibrillation; E78.2 Mixed hyperlipidemia; Z12.5 Encounter for screening for malignant neoplasm of prostate; R73.01 Impaired fasting glucose

== ENCOUNTER → 2024-04-05 | Outpatient (REF) | payer BC ==
[2024-04-05 12:52] LABS: FERRITIN 291.9 NG/ML (10.5-307.3)
[2024-04-05 12:53] LABS: IRON (FE) 72 UG/DL (65-175)
[2024-04-05 12:54] LABS: TOTAL IRON BINDING CAPACITY 343 UG/DL (250-425)
[2024-04-05 13:03] LABS: HEPATITIS B SURFACE ANTIGEN NEGATIVE (NEGATIVE)
[2024-04-05 13:24] LABS: HEPATITIS B CORE ANTIBODY IGM NEGATIVE (NEGATIVE); HEPATITIS C VIRUS ABY INDEX 0.14 INDEX (<0.8)
== END ==
LOC: M SFHCCLAY 08:39
PROVIDERS: ATTEND Physician Assistant
DX: R74.01 Elevation of levels of liver transaminase levels (principal)

== ENCOUNTER → 2025-02-20 | Outpatient (REF) | payer BC ==
[2025-02-20 12:03] LABS: ALT/SGPT 27 U/L (7.0-40); AST/SGOT 16 U/L (<34); CALCIUM LEVEL 9.1 MG/DL (8.5-10.1); CARBON DIOXIDE LEVEL 27 MMOL/L (20-31); CHLORIDE LEVEL 106 MMOL/L (98-107); CHOLESTEROL LEVEL 186 MG/DL (<200); CHOLESTEROL RISK RATIO 5.10 (<5); CREATININE FOR GFR 0.83 MG/DL (0.70-1.30); GLOMERULAR FILTRATION RATE > 90.0 (>56); LDL CHOLESTEROL 118.0 MG/DL (<100); NON-HDL-C 149.6 MG/DL; POTASSIUM SERUM 4.2 MMOL/L (3.5-5.1); SODIUM LEVEL 140 MMOL/L (136-145); TRIGLYCERIDES LEVEL 158 MG/DL (<150)
[2025-02-20 12:04] LABS: PSA SCREENING 1.44 NG/ML (< 4.00)
[2025-02-20 12:18] LABS: ESTIMATED AVERAGE GLUCOSE 105.0 MG/DL (60-110)
== END ==
LOC: M SFHCCLAY 08:22
PROVIDERS: ATTEND Physician Assistant
DX: E66.01 Morbid (severe) obesity due to excess calories (principal); I48.0 Paroxysmal atrial fibrillation; I10 Essential (primary) hypertension; E78.2 Mixed hyperlipidemia; G47.33 Obstructive sleep apnea (adult) (pediatric); Z12.11 Encounter for screening for malignant neoplasm of colon; K76.0 Fatty (change of) liver, not elsewhere classified; Z12.5 Encounter for screening for malignant neoplasm of prostate